=== PATIENT | female | born 1975 | race Hispanic/Latino ===

== ENCOUNTER 2017-12-19 14:21 | Outpatient (CLI) | payer OTHER | END 2017-12-19 14:22 | disposition home or self-care (01) | LOC: BICMAMMO 14:21 | PROVIDERS: ATTEND Obstetrics & Gynecology | DX: Z12.31 Encounter for screening mammogram for malignant neoplasm of breast (principal); Z80.3 Family history of malignant neoplasm of breast | CPT/HCPCS: 77063; 77067 ==

== ENCOUNTER 2018-12-10 12:45 | Outpatient (CLI) | payer OTHER ==
--- NOTE | 2018-12-10 14:13 | MMO ---
Bilateral MAMMO Bilat Screen [facility]. CLINICAL HISTORY: Patient is 43 years old and is seen for screening. The patient has the following family history of breast cancer: mother, at age 67, malignant (generic). The patient has no personal history of cancer. The patient has a history of right Ultrasound Guided Core Biopsy in 2012 - benign and right Ultrasound Guided Core Biopsy in 2001 - benign. VIEWS: The views performed were: bilateral craniocaudal with tomosynthesis and bilateral mediolateral oblique with tomosynthesis. FILMS COMPARED: The present examination has been compared to a prior imaging study performed at [facility] on 12/19/2017. MAMMOGRAM FINDINGS: The breasts are heterogeneously dense, which could obscure a lesion on mammography. Benign calcifications are noted bilaterally. Right biopsy clips. There are no suspicious masses, suspicious calcifications, or new areas of architectural distortion. IMPRESSION: THERE IS NO MAMMOGRAPHIC EVIDENCE OF MALIGNANCY. A ROUTINE FOLLOW-UP MAMMOGRAM IN 1 YEAR IS RECOMMENDED. THE RESULTS OF THIS EXAM WERE SENT TO THE PATIENT. ACR BI-RADS Category 2 - Benign finding MAMMOGRAPHY NOTE: 1. A negative mammogram report should not delay a biopsy if a dominant of clinically suspicious mass is present. 2. Approximately 10% to 15% of breast cancers are not detected by mammography. 3. Adenosis and dense breasts may obscure an underlying neoplasm. Reported by: WIN ZHANG MD Electonically Signed: [id number]
== END 2018-12-10 12:46 | disposition home or self-care (01) ==
LOC: BICMAMMO 12:45
PROVIDERS: ATTEND Obstetrics & Gynecology
DX: Z12.31 Encounter for screening mammogram for malignant neoplasm of breast (principal); Z80.3 Family history of malignant neoplasm of breast
CPT/HCPCS: 77063; 77067

== ENCOUNTER 2019-12-12 09:48 | Outpatient (CLI) | payer OTHER ==
--- NOTE | 2019-12-12 10:43 | MMO ---
Bilateral MAMMO Bilat Screen [facility]. CLINICAL HISTORY: Patient is 44 years old and is seen for screening. The patient has the following family history of breast cancer: mother, at age 67, malignant (generic). The patient has no personal history of cancer. The patient has a history of right Ultrasound Guided Core Biopsy in 2012 - benign and right Ultrasound Guided Core Biopsy in 2001 - benign. VIEWS: The views performed were: bilateral craniocaudal with tomosynthesis; bilateral mediolateral oblique with tomosynthesis; and bilateral exaggerated craniocaudal. FILMS COMPARED: The present examination has been compared to prior imaging studies performed at [facility] on 12/19/2017 and 12/10/2018, and at [facility] on 09/07/2015 and 01/04/2017. This study has been interpreted with the assistance of computer-aided detection. MAMMOGRAM FINDINGS: The breasts are heterogeneously dense, which could obscure a lesion on mammography. Benign calcifications are noted bilaterally. Right biopsy clips. There are no suspicious masses, suspicious calcifications, or new areas of architectural distortion. IMPRESSION: THERE IS NO MAMMOGRAPHIC EVIDENCE OF MALIGNANCY. A ROUTINE FOLLOW-UP MAMMOGRAM IN 1 YEAR IS RECOMMENDED. THE RESULTS OF THIS EXAM WERE SENT TO THE PATIENT. ACR BI-RADS Category 2 - Benign finding MAMMOGRAPHY NOTE: 1. A negative mammogram report should not delay a biopsy if a dominant of clinically suspicious mass is present. 2. Approximately 10% to 15% of breast cancers are not detected by mammography. 3. Adenosis and dense breasts may obscure an underlying neoplasm. Reported by: WIN ZHANG MD Electonically Signed: [id number]
== END 2019-12-12 09:49 | disposition home or self-care (01) ==
LOC: BICMAMMO 09:48
DX: Z12.31 Encounter for screening mammogram for malignant neoplasm of breast (principal); Z80.3 Family history of malignant neoplasm of breast; Z91.89 Other specified personal risk factors, not elsewhere classified
CPT/HCPCS: 77063; 77067

== ENCOUNTER 2021-05-12 13:15 | Outpatient (CLI) | payer OTHER | END 2021-05-12 13:16 | disposition home or self-care (01) | LOC: BICMAMMO 13:15 | PROVIDERS: ATTEND Family Medicine | DX: Z12.31 Encounter for screening mammogram for malignant neoplasm of breast (principal); Z80.3 Family history of malignant neoplasm of breast; Z91.89 Other specified personal risk factors, not elsewhere classified | CPT/HCPCS: 77063; 77067 ==

== ENCOUNTER 2022-03-10 10:14 | Day surgery (SDC) | payer OTHER ==
[2022-03-09 13:20] VITALS: BMI 25.8
[2022-03-10] MEDS ORDERED: Gabapentin 300 MG CAP ONE (11:11)
[2022-03-10] MEDS ORDERED: CeleCOXIB 100 MG CAP ONE (11:11)
[2022-03-10] MEDS ORDERED: Famotidine/PF 20 mg/2ml Vial ONE (11:12)
[2022-03-10] MEDS ORDERED: Midazolam HCl 2 mg/2 ml Vial ONE ×2 (12:16→12:23)
[2022-03-10] MEDS ORDERED: fentaNYL Citrate/PF 100 MCG/2 ML SYRINGE ONE (12:17)
[2022-03-10] MEDS ORDERED: SUGAMMADEX SODIUM 200 MG/2 ML VIAL ONE (12:17)
[2022-03-10] MEDS ORDERED: EPINEPHrine 1 MG/ML AMP ONE (12:19)
[2022-03-10] MEDS ORDERED: Bupivacaine PF 0.5% 30 ML VIAL ONE (12:19)
[2022-03-10] MEDS ORDERED: CEFAZOLIN 2 GM VIAL ONE (12:39)
[2022-03-10] MEDS ORDERED: PROPOFOL 200 MG/20 ML VIAL ONE (12:46)
[2022-03-10] MEDS ORDERED: Rocuronium Bromide 10 MG/ML (10ML VIAL) ONE (12:46)
[2022-03-10] MEDS ORDERED: Dexamethasone 20 MG/5 ML VIAL ONE (12:46)
[2022-03-10] MEDS ORDERED: Fentanyl 100 MCG/2 ML VIAL ONE ×3 (15:33→16:09)
[2022-03-10] MEDS ORDERED: HYDROmorphone 0.5 MG/0.5 ML SYRINGE ONE ×2 (16:23→16:35)
[2022-03-10] MEDS ORDERED: Ketorolac Tromethamine 30 MG/ML VIAL ONE (16:48)
[2022-03-10] MEDS ORDERED: Promethazine HCl 25 MG/ML VIAL ONE (17:15)
[2022-03-10] MEDS ORDERED: Ketorolac Tromethamine 30 MG/ML VIAL IVP SCH (17:45)
== END 2022-03-10 19:45 | disposition home or self-care (01) ==
LOC: SDC 10:14
PROVIDERS: ATTEND Student in an Organized Health Care Education/Training Program
PROC: 0UT74ZZ Resection of Bilateral Fallopian Tubes, Percutaneous Endoscopic Approach (ICD-10-PCS; principal; 2022-03-10)
PROC: 0UT94ZZ Resection of Uterus, Percutaneous Endoscopic Approach (ICD-10-PCS; principal; 2022-03-10)
DX: D25.2 Subserosal leiomyoma of uterus (principal); N80.03 Adenomyosis of the uterus; N83.8 Other noninflammatory disorders of ovary, fallopian tube and broad ligament; K66.0 Peritoneal adhesions (postprocedural) (postinfection); D64.9 Anemia, unspecified; Z20.822 Contact with and (suspected) exposure to COVID-19
CPT/HCPCS: 86850; 86900; 86901; 88307; C1713; J0171; J0690; J1100; J1170; J1885; J2250; J2550; J2704; J3010; S0020; S0028